=== PATIENT | male | born 1995 | race Caucasian/White ===

== ENCOUNTER 2017-01-26 18:49 | Emergency (ER) | payer OTHER ==
[~2017-01-26] VITALS: Ht 170.2 cm; Wt 72.6 kg
[~2017-01-26 18:49] MED LIST: ACETAMINOPHEN-1 EAC1 PO; BACTRIM DS TAB1 EACH PO; COLACE100 MG PO; DILAUDID2 MG PO; FLAGYL500 MG PO; IBUPROFEN 800800 M1 PO; INTUNIV3 MG PO; MOTRIN 600 MG600 M1 PO; NAPROSYN500 MG PO; NOHOMEMEDICATIONS; NORFLEX100 MG PO; PERCOCET PO; TEGRETOL XR400 MG PO; TRAMADOL 50 MG50 MG PO; ZOFRAN ODT4 MG PO
[2017-01-26 19:26] LABS: CALCIUM 9.2 mg/dL (8.5-10.1); POTASSIUM 3.8 mmol/L (3.5-5.1)
[2017-01-26] MEDS ORDERED: CLEOCIN HCL150 MG PO (20:42)
[2017-01-26] MEDS ORDERED: HURRICAINE MM (20:44)
[2017-01-26 20:54] VITALS: BP 103/67
== END 2017-01-26 21:01 | disposition home or self-care (01) ==
LOC: ER 18:49
PROVIDERS: Physician Assistant
DX: J36 Peritonsillar abscess (principal); F10.99 Alcohol use, unspecified with unspecified alcohol-induced disorder

== ENCOUNTER 2018-03-21 07:43 | Emergency (ER) | payer OTHER ==
[~2018-03-21] VITALS: Ht 170.2 cm; Wt 68.0 kg
[~2018-03-21 07:43] MED LIST changes: +CLEOCIN HCL150 MG PO; +HURRICAINE MM
[2018-03-21 07:46] VITALS: BP 125/83
[2018-03-21] MEDS ORDERED: BACTRIM DS TAB1 EACH PO (08:27)
[2018-03-21] MEDS ORDERED: KEFLEX500 M1 PO (08:27)
== END 2018-03-21 08:53 | disposition home or self-care (01) ==
LOC: ER 07:43
DX: L02.01 Cutaneous abscess of face (principal)

== ENCOUNTER 2018-04-18 22:55 | Emergency (ER) | payer OTHER ==
[~2018-04-18] VITALS: Ht 167.6 cm; Wt 68.0 kg
[~2018-04-18 22:55] MED LIST changes: +KEFLEX500 M1 PO
[2018-04-18] MEDS ORDERED: NOHOMEMEDICATIONS (23:26)
[2018-04-19] MEDS ORDERED: BACTRIM DS TAB1 EACH PO (00:35)
[2018-04-19] MEDS ORDERED: TRAMADOL 50 MG50 MG PO (00:35)
[2018-04-19 01:00] VITALS: BP 113/69
== END 2018-04-19 01:02 | disposition home or self-care (01) ==
LOC: ER 22:55
DX: N49.2 Inflammatory disorders of scrotum (principal); J45.909 Unspecified asthma, uncomplicated

== ENCOUNTER 2018-04-19 20:25 | Emergency (ER) | payer OTHER ==
[~2018-04-19] VITALS: Ht 170.2 cm; Wt 68.0 kg
[2018-04-19 20:40] LABS: URINE BILIRUBIN NEGATIVE (Negative); URINE BLOOD NEGATIVE (Negative); URINE CLARITY CLEAR; URINE COLOR YELLOW; URINE GLUCOSE-RANDOM* NEGATIVE (Negative); URINE KETONES NEGATIVE (Negative); URINE LEUKOCYTES-REFLEX NEGATIVE (Negative); URINE NITRITE-REFLEX NEGATIVE (Negative); URINE PROTEIN (DIPSTICK) NEGATIVE (Negative); URINE SPECIFIC GRAVITY 1.025 (1.005-1.035); URINE UROBILINOGEN 0.2 E.U./dl (0.2-1.0)
[2018-04-19 21:54] VITALS: BP 110/72
== END 2018-04-19 21:56 | disposition home or self-care (01) ==
LOC: ER 20:25
PROVIDERS: Physician Assistant
DX: N49.2 Inflammatory disorders of scrotum (principal); J45.990 Exercise induced bronchospasm; F17.210 Nicotine dependence, cigarettes, uncomplicated

== ENCOUNTER 2019-03-15 21:13 | Emergency (ER) | payer OTHER ==
[~2019-03-15] VITALS: Ht 170.2 cm; Wt 72.6 kg
[2019-03-15] MEDS ORDERED: BACTRIM DS TAB1 EACH PO (23:38)
[2019-03-15 23:50] VITALS: BP 108/74
== END 2019-03-15 23:57 | disposition home or self-care (01) ==
LOC: ER 21:13
DX: L02.415 Cutaneous abscess of right lower limb (principal); F17.210 Nicotine dependence, cigarettes, uncomplicated; J45.909 Unspecified asthma, uncomplicated

== ENCOUNTER 2019-10-15 14:26 | Emergency (ER) | payer OTHER ==
[~2019-10-15] VITALS: Ht 167.6 cm; Wt 68.0 kg
[2019-10-15 14:40] LABS: URINE BLOOD NEGATIVE (Negative); URINE CLARITY SL CLOUDY; URINE COLOR YELLOW; URINE GLUCOSE-RANDOM* 1+ (Negative); URINE KETONES TRACE (Negative); URINE LEUKOCYTES-REFLEX NEGATIVE (Negative); URINE NITRITE-REFLEX NEGATIVE (Negative); URINE PROTEIN (DIPSTICK) 3+ (Negative); URINE SPECIFIC GRAVITY 1.025 (1.005-1.035)
[2019-10-15 15:12] LABS: ICTOTEST (BILI CONFIRMATORY) Negative (Negative); URINE BILIRUBIN NEGATIVE (Negative)
[2019-10-15 15:32] LABS: BACTERIA-REFLEX 1-9 Few /HPF (None Seen); CASTS None Seen /LPF (None Seen); CRYSTALS None Seen /LPF (None Seen); SQUAMOUS None Seen /LPF (0-3); URINE RBC 0-2 Rare /HPF (0-2); URINE WBC-REFLEX >25 Many /HPF (0-5)
[2019-10-15 16:19] LABS: HEMATOCRIT 44.2 % (42.0-52.0); HEMOGLOBIN 15.1 gm/dL (14.0-18.0); MCH 32.1 pg (26.0-34.0); MCHC 34.1 g/dL (28.0-37.0); MCV 94.3 fL (80.0-100.0); PLATELET COUNT 264 thou/uL (150-400); RBC 4.69 mil/uL (4.50-6.00); RDW 13.6 % (10.5-14.5)
[2019-10-15 16:25] LABS: CALCIUM 9.8 mg/dL (8.5-10.1)
[2019-10-15 16:31] LABS: ALBUMIN 3.1 g/dL (3.4-5.0); TOTAL BILIRUBIN 0.2 mg/dL (<0.1-1.0); TOTAL PROTEIN 7.8 g/dL (6.4-8.2)
[2019-10-15 16:45] LABS: ABSOLUTE NEUTROPHILS 5.8 thou/uL (1.4-8.2); ANISOCYTOSIS 1+
[2019-10-15 19:43] VITALS: BP 97/70
[2019-10-16 08:52] LABS: HSV PCR SOURCE BLISTER
[2019-10-17 15:10] LABS: HSV 1 DNA Negative (Negative); HSV 2 DNA Negative (Negative)
[2019-10-17 22:07] LABS: SYPHILIS AB Non Reactive (Non Reactive)
== END 2019-10-15 19:48 | disposition home or self-care (01) ==
LOC: ER 14:26
PROVIDERS: Physician Assistant
DX: N48.5 Ulcer of penis (principal); R51 Headache; M79.18 Myalgia, other site; F17.210 Nicotine dependence, cigarettes, uncomplicated; Z90.49 Acquired absence of other specified parts of digestive tract

== ENCOUNTER 2021-12-10 21:33 | Emergency (ER) | payer OTHER ==
[~2021-12-10] VITALS: Ht 167.6 cm; Wt 68.0 kg
[2021-12-10 22:22] LABS: ABSOLUTE NEUTROPHILS 3.8 thou/uL (1.4-8.2); BASOPHILS 1.3 % (0.0-2.0); EOSINOPHILS 4.5 % (0.0-3.0); HEMOGLOBIN 12.6 gm/dL (14.0-18.0); LYMPHOCYTES 32.7 % (24.0-44.0); MCH 33.1 pg (26.0-34.0); MCHC 36.1 g/dL (28.0-37.0); MCV 91.6 fL (80.0-100.0); MONOCYTES 7.7 % (1.0-8.0); PLATELET COUNT 470 thou/uL (150-400); POLYS 53.8 % (36.0-66.0); RBC 3.82 mil/uL (4.50-6.00); RDW 14.1 % (10.5-14.5); WBC 7.1 thou/uL (4.0-11.0)
[2021-12-10 22:27] LABS: POTASSIUM 4.2 mmol/L (3.5-5.1)
[2021-12-10 22:34] LABS: ALBUMIN 3.6 g/dL (3.4-5.0); TOTAL BILIRUBIN 0.1 mg/dL (0.2-1.0); TOTAL PROTEIN 7.8 g/dL (6.4-8.2)
[2021-12-10] MEDS ORDERED: DOXYCYCLINE 10100 M2 PO (22:44)
[2021-12-10 23:20] VITALS: BP 110/91
== END 2021-12-10 23:21 | disposition home or self-care (01) ==
LOC: ER 21:33
PROVIDERS: Physician Assistant
DX: L03.115 Cellulitis of right lower limb (principal)